=== PATIENT | female | born 1965 | race Caucasian/White ===

== ENCOUNTER 2018-01-11 10:46 | Emergency (ER) | payer OTHER ==
[~2018-01-11] VITALS: Ht 162.6 cm; Wt 64.9 kg
[2018-01-11] MEDS ORDERED: LISI-167 PO (11:27)
[2018-01-11] MEDS ORDERED: SODIUM CHLORIDE FLUSH 10ML SYR IVF ONE (11:30)
[2018-01-11 11:43] LABS: BASOPHILS # (AUTO) 0.03 x10^3/uL (0-0.1); BASOPHILS % (AUTO) 0 % (0-1); EOSINOPHILS # (AUTO) 0.06 x10^3/uL (0-0.4); EOSINOPHILS % (AUTO) 1 % (1-7); LYMPHOCYTES % (AUTO) 29 % (22-44); MD NO; MEAN CORPUSCULAR HEMOGLOBIN 34.8 pg (27.0-34.8); MEAN CORPUSCULAR HGB CONC 34.6 g/dL (32.4-35.8); MEAN CORPUSCULAR VOLUME 100.6 fL (80-100); MEAN PLATELET VOLUME 9.4 fL (7.4-10.4); MONOCYTES % (AUTO) 8 % (2-9); NEUTROPHILS # (AUTO) 5.62 x10^3/uL (1.8-6.8); NEUTROPHILS % (AUTO) 62 % (42-75); PLATELET COUNT 246 x10^3/uL (130-400); RED BLOOD COUNT 4.47 x10^6/uL (3.82-5.3); RED CELL DISTRIBUTION WIDTH 13.4 % (9.6-15.2)
[2018-01-11 11:44] LABS: ALANINE AMINOTRANSFERASE 51 U/L (12-78); ALBUMIN 4.4 g/dL (3.4-5.0); ANION GAP 6 mmol/L (5-15); CHLORIDE 109 mmol/L (98-107)
[2018-01-11 11:49] LABS: ALKALINE PHOSPHATASE 98 U/L (45-117); T4 (THYROXINE) 7.3 mcg/dL (4.8-13.9); TOTAL PROTEIN 7.7 g/dL (6.4-8.2); TROPONIN I < 0.015 ng/mL (0.000-0.045)
[2018-01-11] MEDS ORDERED: ONDANSETRON ODT 4 MG ONE (12:17)
[2018-01-11] MEDS ORDERED: ONDANSETRON ODT 4 MG PO ONE (12:30)
[2018-01-11 13:04] VITALS: BP 144/69
[2018-01-26] MEDS ORDERED: CEFD300C37 PO (11:16)
[2018-01-26] MEDS ORDERED: POTA10TA11 PO (11:16)
[2018-01-26] MEDS ORDERED: LISI5TAB7 PO (11:16)
[2018-01-26] MEDS ORDERED: ATOR-2 PO (11:16)
[2018-01-26] MEDS ORDERED: FURO20TA3 PO (11:16)
[2018-01-26] MEDS ORDERED: DOXY100T PO (11:16)
[2018-01-26] MEDS ORDERED: NICO-487 TD (11:16)
[2018-01-26] MEDS ORDERED: APIX5TAB PO (11:16)
== END 2018-01-11 13:36 | disposition home or self-care (01) ==
LOC: ED 13:32
DX: I10 Essential (primary) hypertension (principal)
CPT/HCPCS: 36415; 71046; 80053; 84436; 84443; 84484; 85025; 93005; 99285; Q0162

== ENCOUNTER 2018-09-03 07:59 | Emergency (ER) | payer OTHER ==
[~2018-09-03] VITALS: Ht 162.6 cm; Wt 61.0 kg
[~2018-09-03 07:59] MED LIST: APIX5TAB PO; ATOR-2 PO; CEFD300C37 PO; DOXY100T PO; FURO20TA3 PO; LISI-167 PO; LISI5TAB7 PO; NICO-487 TD; POTA10TA11 PO
[2018-09-03] MEDS ORDERED: ACETAMINOPHEN 500 MG TABLET PO ONE (08:30)
[2018-09-03] MEDS ORDERED: DIPH,PERTUSS(ACELL),TET VAC/PF 0.5 ML IM-VACC ONE ×2 (08:30→09:21)
[2018-09-03] MEDS ORDERED: SODIUM CHLORIDE FLUSH 10ML SYR IVF ONE (08:30)
[2018-09-03] MEDS ORDERED: SODIUM CHLORIDE 0.9% 1,000ML IVBOLUS ONE (08:30)
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
[2018-09-03 08:57] LABS: BASOPHILS # (AUTO) 0.01 x10^3/uL (0-0.1); BASOPHILS % (AUTO) 0 % (0-1); EOSINOPHILS # (AUTO) 0.08 x10^3/uL (0-0.4); EOSINOPHILS % (AUTO) 1 % (1-7); LYMPHOCYTES # (AUTO) 2.72 x10^3/uL (1-3.4); LYMPHOCYTES % (AUTO) 31 % (22-44); MD NO; MEAN CORPUSCULAR HEMOGLOBIN 33.8 pg (27.0-34.8); MEAN CORPUSCULAR HGB CONC 33.3 g/dL (32.4-35.8); MEAN CORPUSCULAR VOLUME 101.5 fL (80-100); MEAN PLATELET VOLUME 9.5 fL (7.4-10.4); MONOCYTES # (AUTO) 0.83 x10^3/uL (0.2-0.8); MONOCYTES % (AUTO) 9 % (2-9); NEUTROPHILS # (AUTO) 5.15 x10^3/uL (1.8-6.8); NEUTROPHILS % (AUTO) 59 % (42-75); PLATELET COUNT 242 x10^3/uL (130-400); RED BLOOD COUNT 4.16 x10^6/uL (3.82-5.3); RED CELL DISTRIBUTION WIDTH 13.5 % (9.6-15.2)
[2018-09-03 09:01] LABS: INTERNATIONAL NORMALIZED RATIO 1.03 (0.93-1.1); PROTHROMBIN TIME 10.9 Seconds (9.6-11.5)
[2018-09-03 09:02] LABS: ALANINE AMINOTRANSFERASE 67 U/L (12-78); ANION GAP 9 mmol/L (5-15); CALCIUM 9.1 mg/dL (8.5-10.1); CHLORIDE 109 mmol/L (98-107)
[2018-09-03 09:07] LABS: ALKALINE PHOSPHATASE 94 U/L (45-117); BILIRUBIN,TOTAL 0.5 mg/dL (0.2-1.0); CREATININE 1.08 mg/dL (0.55-1.02); TOTAL PROTEIN 6.9 g/dL (6.4-8.2); TROPONIN I < 0.015 ng/mL (0.000-0.045)
[2018-09-03] MEDS ORDERED: ACETAMINOPHEN 500 MG TABLET ONE (09:22)
--- NOTE | 2018-09-03 09:42 | NUR ---
left eyebrow laceration cleaned with saline.
[2018-09-03 10:45] LABS: MICROSCOPIC NOT IND
[2018-09-03 10:47] LABS: CULTURE INDICATED? NO
--- NOTE | 2018-09-03 10:47 | NUR ---
PT UP TO BR WITH SBA. URINE COLLECTED AND SENT TO LAB.
[2018-09-03 11:46] VITALS: BP 146/60
== END 2018-09-03 11:48 | disposition home or self-care (01) ==
LOC: ED 08:28
DX: S01.112A Laceration without foreign body of left eyelid and periocular area, initial encounter (principal); K52.9 Noninfective gastroenteritis and colitis, unspecified; I11.0 Hypertensive heart disease with heart failure; I50.9 Heart failure, unspecified; I48.2 Chronic atrial fibrillation; F17.200 Nicotine dependence, unspecified, uncomplicated; R55 Syncope and collapse; W19.XXXA Unspecified fall, initial encounter; Y93.01 Activity, walking, marching and hiking; Y92.89 Other specified places as the place of occurrence of the external cause; Y99.8 Other external cause status
CPT/HCPCS: 12013; 36415; 70450; 70486; 72125; 80053; 81003; 83605; 83735; 83880; 84484; 85025; 85610; 85730; 90471; 90715; 93005; 96360; 96361; 99284; J7030

== ENCOUNTER 2019-01-26 16:18 | Emergency (ER) | payer OTHER ==
[~2019-01-26] VITALS: Ht 162.6 cm; Wt 56.0 kg
--- NOTE | 2019-01-26 16:56 | NUR ---
PATIENT PRESENTS TO ED TODAY FOR BLOOD IN URINE, DENIES PAIN. PATIENT AMB WITH STEADY GAIT TO BATHROOM, UA COLLECTED AND WALKED TO LAB. (SMALL AMOUNT COLLECTED). PA AT BEDSIDE, AWAITING FURTHER ORDERS, CALL LIGHT WITHIN REACH. SIG OTHER AT BEDSIDE.
[2019-01-26] MEDS ORDERED: TRAZ50TA66 PO (16:58)
[2019-01-26] MEDS ORDERED: PROP10TA16 PO (16:58)
[2019-01-26 17:20] LABS: MICROSCOPIC INDICATED
[2019-01-26] MEDS ORDERED: SODIUM CHLORIDE FLUSH 10ML SYR IVF ONE (17:30)
--- NOTE | 2019-01-26 17:31 | NUR ---
3 WAY CREWS REQ FROM [facility], AWAITING CREWS. IV ESTABLISHED, AWAITING CT. NO ADDITIONAL NEEDS AT THIS TIME.
[2019-01-26 17:38] LABS: CULTURE INDICATED? NO
[2019-01-26 17:44] LABS: BASOPHILS # (AUTO) 0.04 x10^3/uL (0-0.1); BASOPHILS % (AUTO) 1 % (0-1); EOSINOPHILS # (AUTO) 0.07 x10^3/uL (0-0.4); EOSINOPHILS % (AUTO) 1 % (1-7); LYMPHOCYTES # (AUTO) 3.33 x10^3/uL (1-3.4); LYMPHOCYTES % (AUTO) 46 % (22-44); MD NO; MEAN CORPUSCULAR HEMOGLOBIN 35.2 pg (27.0-34.8); MEAN CORPUSCULAR HGB CONC 33.6 g/dL (32.4-35.8); MEAN CORPUSCULAR VOLUME 104.5 fL (80-100); MEAN PLATELET VOLUME 9.6 fL (7.4-10.4); MONOCYTES # (AUTO) 0.83 x10^3/uL (0.2-0.8); MONOCYTES % (AUTO) 12 % (2-9); NEUTROPHILS # (AUTO) 2.89 x10^3/uL (1.8-6.8); NEUTROPHILS % (AUTO) 40 % (42-75); PLATELET COUNT 207 x10^3/uL (130-400); RED CELL DISTRIBUTION WIDTH 13.9 % (9.6-15.2)
[2019-01-26 17:49] LABS: INTERNATIONAL NORMALIZED RATIO 1.09 (0.93-1.1); PROTHROMBIN TIME 11.4 Seconds (9.6-11.5)
[2019-01-26 17:50] LABS: ALBUMIN 4.3 g/dL (3.4-5.0); ANION GAP 9 mmol/L (5-15); CALCIUM 8.6 mg/dL (8.5-10.1); CHLORIDE 112 mmol/L (98-107); CREATININE 0.78 mg/dL (0.55-1.02)
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
[2019-01-26] MEDS ORDERED: OMNIPAQUE 350 MG/ML, 150 ML BOTTLE ONE (18:39)
--- NOTE | 2019-01-26 18:58 | NUR ---
PATIENT BACK FROM CT, CREWS INSERTED WITH CBI AT THIS TIME, VS UPDATED IN CHART. FAMILY AT BEDSIDE.
--- NOTE | 2019-01-26 19:32 | NUR ---
CBI AT THIS TIME, PATIENT SITTING IN WES [place]ANTOJA.
--- NOTE | 2019-01-26 20:23 | NUR ---
CBI completed, (3000ML in/3000ML out). eileen HARVEY dc'clemente per md order. Patient/Caregiver given discharge instructions and they have confirmed that they understand the instructions. Patient ambulatory with steady gait to DC desk.
[2019-01-26 20:26] VITALS: BP 178/79
== END 2019-01-26 20:27 ==
LOC: ED 19:23
DX: R31.0 Gross hematuria (principal); I48.91 Unspecified atrial fibrillation; F17.210 Nicotine dependence, cigarettes, uncomplicated; I50.9 Heart failure, unspecified; I11.0 Hypertensive heart disease with heart failure; Z90.710 Acquired absence of both cervix and uterus; Z79.01 Long term (current) use of anticoagulants; Z79.82 Long term (current) use of aspirin
CPT/HCPCS: 36415; 74178; 80048; 81001; 82040; 85025; 85610; 99284; Q9967

== ENCOUNTER 2019-07-01 13:24 | Emergency (ER) | payer OTHER ==
[~2019-07-01] VITALS: Ht 162.6 cm; Wt 59.5 kg
[~2019-07-01 13:24] MED LIST changes: +PROP10TA16 PO; +TRAZ50TA66 PO
[2019-07-01 13:43] VITALS: BP 156/76
[2019-07-01] MEDS ORDERED: OXYcodone/APAP 7.5/325MG TABLET PO ONE (14:00)
[2019-07-01] MEDS ORDERED: OXYcodone/APAP 7.5/325MG TABLET ONE (14:08)
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
--- NOTE | 2019-07-01 14:13 | NUR ---
Pt alert and resting on gurney. Pt on pulse ox/HR monitor. Pt mediated per SEP. Pt instructed not to get up without help. Call light within reach. Friend remains at bedside.
--- NOTE | 2019-07-01 14:20 | NUR ---
Pt to imaging
--- NOTE | 2019-07-01 14:57 | NUR ---
Pt alert and resting on gurney. Pt aware of wait for imaging results before c-collar can be removed.
--- NOTE | 2019-07-01 15:27 | NUR ---
Rocker shoe ordered. Waiting for shoe arrival before d/c.
--- NOTE | 2019-07-01 16:11 | NUR ---
Patient/Caregiver given discharge instructions and they have confirmed that they understand the instructions. Patient ambulatory with steady gait.
== END 2019-07-01 16:37 | disposition home or self-care (01) ==
LOC: ED 14:12
DX: S16.1XXA Strain of muscle, fascia and tendon at neck level, initial encounter (principal); S00.93XA Contusion of unspecified part of head, initial encounter; S90.31XA Contusion of right foot, initial encounter; I48.91 Unspecified atrial fibrillation; I11.0 Hypertensive heart disease with heart failure; I50.9 Heart failure, unspecified; Z90.49 Acquired absence of other specified parts of digestive tract; Z90.710 Acquired absence of both cervix and uterus; Y04.8XXA Assault by other bodily force, initial encounter; Y93.89 Activity, other specified; Y92.009 Unspecified place in unspecified non-institutional (private) residence as the place of occurrence of the external cause; Y99.8 Other external cause status
CPT/HCPCS: 70450; 72125; 99284